=== PATIENT | female | born 1990 | race Caucasian/White ===

== ENCOUNTER 2017-03-15 16:14 | Emergency (ER) | payer MEDICAID, OTHER ==
[~2017-03-15] VITALS: Ht 157.5 cm; Wt 80.0 kg
[~2017-03-15 16:14] MED LIST: ALBU2.5V3 NEB; HYDR-905 PO; POLY17PO6 PO; RANI150T9 PO
[2017-03-15 16:17] VITALS: Ht 157.5 cm; Wt 80.0 kg
[2017-03-15] MEDS ORDERED: KETOROLAC 15 MG INJ IM STA (19:03)
[2017-03-15] MEDS ORDERED: DIAZEPAM 5 MG TAB PO ONE (19:30)
--- NOTE | 2017-03-15 21:00 | RADRPT ---
PROCEDURE: XR cervical spine CLINICAL INDICATION: Radiculopathy with pain radiating to left arm TECHNIQUE: 3 standard radiographs were obtained of the cervical spine. COMPARISON: None FINDINGS: Alignment: There is straightening of the normal lordotic curvature to the cervical spine without sub luxation. The atlantoaxial relationship appears normal Disk spaces: are well maintained Osseous structures : appear intact with no fracture or destructive process identified. there is no s ignificant spurring. Soft tissues: are unremarkable. IMPRESSION: 1. Straightening of the normal lordotic curvature to the cervical spine without subluxation. 2. The osseous elements appear intact. Physician Francisco Date Time Electronically viewed and signed by Physician Francisco on 03/15/2017 20:59 /
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
[2017-03-15] MEDS ORDERED: DIAZ-90 PO (21:49)
[2017-03-15] MEDS ORDERED: NAPR-260 PO (21:49)
[2017-03-15 22:00] VITALS: BP 115/70; PULSE 74; RESP 16
== END 2017-03-15 22:01 | disposition home or self-care (01) ==
LOC: FTE 16:14
DX: S49.91XA Unspecified injury of right shoulder and upper arm, initial encounter (principal); S16.1XXA Strain of muscle, fascia and tendon at neck level, initial encounter; M54.2 Cervicalgia; X58.XXXA Exposure to other specified factors, initial encounter; Y92.9 Unspecified place or not applicable
CPT/HCPCS: 72040; 93005; 96372; 99284; J1885